=== PATIENT | male | born 1980 | race African-American/Black ===

== ENCOUNTER 2017-11-12 17:50 | Emergency (ER) | payer OTHER ==
[~2017-11-12] VITALS: Ht 190.5 cm; Wt 127.0 kg
[2017-11-12 18:46] LABS: BASOPHIL (%) 0.5 % (0-1); EOSINOPHIL (%) 0.2 % (0-5); HEMATOCRIT 40.6 % (38.0-50.0); HEMOGLOBIN 13.3 G/DL (12.5-16.6); IMMATURE GRANULOCYTE (%) 0.5 % (0.0-0.7); LYMPHOCYTE (%) 37.6 % (15-42); LYMPHOCYTE COUNT 3.2 K/uL (1.0-2.8); MCH 27.9 PG (29.0-34.0); MCHC 32.8 G/DL (30.0-36.0); MCV 85.3 FL (86-99); MONOCYTE (%) 5.9 % (3-12); MONOCYTE COUNT 0.5 K/uL (0-0.8); NEUTROPHIL (%) 55.3 % (45-76); NEUTROPHIL COUNT 4.7 K/uL (1.8-6.4); PLATELET COUNT 268 K/uL (156-360); RBC DIS.WIDTH-CV 13.4 % (11.8-14.6); RBC DIS.WIDTH-SD 41.4 % (39-53); RED BLOOD COUNT 4.76 M/uL (4.00-5.50); WHITE BLOOD COUNT 8.4 K/uL (4.1-10.2)
[2017-11-12 18:58] LABS: CHLORIDE 106 mEq/L (99-109); POTASSIUM 4.3 mEq/L (3.7-5.4); SODIUM 136 mEq/L (136-147)
[2017-11-12 19:00] LABS: GLUCOSE 104 mg/dL (70-99); TOTAL PROTEIN 6.8 g/dL (6.4-8.3)
[2017-11-12 19:02] LABS: TOTAL BILIRUBIN 0.7 mg/dL (0.0-1.0)
[2017-11-12 19:03] LABS: ALKALINE PHOSPHATASE 51 IU/L (3-129)
[2017-11-12 19:04] LABS: CREATININE 0.8 mg/dL (0.6-1.3); GFR ESTIMATE (CALCULATED) > 59 mL/min/ (58.99-99999)
[2017-11-12 19:05] LABS: AST (GOT) 35 IU/L (2-34); UREA NITROGEN (BUN) 10 mg/dL (9-23)
[2017-11-12 19:07] LABS: ALT (GPT) 43 IU/L (3-49)
[2017-11-12 19:15] LABS: TROP-I INTERPRETATION NEGATIVE
[2017-11-12 22:28] LABS: TROP-I INTERPRETATION NEGATIVE
[2017-11-13 05:46] LABS: TROP-I INTERPRETATION NEGATIVE; TROPONIN-I 0.22 ng/mL (0.0-0.30)
[2017-11-13 06:44] VITALS: BP 118/75
== END 2017-11-13 06:45 ==
LOC: EME 17:50
PROVIDERS: Emergency Medicine; Physician Assistant
DX: I47.1 Supraventricular tachycardia (principal); R07.9 Chest pain, unspecified; F17.200 Nicotine dependence, unspecified, uncomplicated
CPT/HCPCS: 71046; 80053; 84484; 85025; 93005; 99281; 99285